=== PATIENT | female | born 1965 | race Caucasian/White ===

== ENCOUNTER 2025-08-27 09:59 | Outpatient (CLI) | payer OTHER, SELFPAY ==
--- NOTE | 2025-08-27 10:12 | USCV_ITS ---
Dorothy Mccarthy Age: 60 Gender: F : 1965 Exam Date: 08/27/2025 10:22 Ordering Phys: Alma Ye Technologist: KONRAD [place] [facility] [place]: [place] Risk Factors: Previous Vascular Surgery: Right Brachial BP: / Left Brachial BP: / Right Left Velocity (cm/s) Spectral Plaque Velocity (cm/s) Spectral Plaque Syst/Diast Broadening Syst/Diast Broadening 65.90/ 6.30 Prox CCA 117.30/ 32.00 120.10/33.00 Mid CCA 80.70 / 13.00 121.40/23.70 Distal CCA 77.40 / 21.90 75.40/ 21.80 Prox ICA 71.30 / 29.20 79.90/ 27.30 Mid ICA 91.50 / 40.40 89.60/ 29.20 Distal ICA 102.80/ 37.70 85.60 ECA 67.50 0.70 ICA/CCA 1.30 Antegrade Vertebral Antegrade 54.70/ 10.80 cm/s 51.60/ 14.20 cm/s Tri Subclavian Tri 100.0 91.10 0 CONCLUSIONS Right ICA stenosis <50%. Mild atheromatous plaque right carotid bulb/ICA. Left ICA stenosis <50%. Mild atheromatous plaque left carotid bulb/ICA. Normal antegrade Doppler flow noted in the right vertebral artery. Normal antegrade Doppler flow noted in the left vertebral artery. Louie Vieyra MD (Electronically Signed) Final Date: 27 August 2025 13:45 S
== END 2025-08-27 10:00 | disposition home or self-care (01) ==
LOC: RAD 10:03
PROVIDERS: PCP Family Medicine; Visit Provider Nurse Practitioner Family
DX: I73.9 Peripheral vascular disease, unspecified (principal); I65.23 Occlusion and stenosis of bilateral carotid arteries
CPT/HCPCS: 93880

== ENCOUNTER 2025-10-11 10:27 | Outpatient (CLI) | payer OTHER, SELFPAY ==
--- NOTE | 2025-10-11 10:39 | CT_ITS ---
WS: [id number] LDCT LUNG CANCER SCREENING TECHNIQUE: Noncontrast CT of the chest with coronal and sagittal reformatted images. CLINICAL INFORMATION: NICOTINE DEPENDENCE,CIGARETTES COMPARISON: None. DLP: 46.81 mGy.cm DIvol: Mean CTDIvol: 0.60 (mGy) All CT scans at [facility] use at least one of these dose optimization techniques: automated exposure control; mA and/or kV adjustment per patient size (includes targeted exams where dose is matched to clinical indication); or iterative reconstruction. FINDINGS: Advanced chronic emphysematous changes. Bulla formation LEFT upper lobe. No suspicious pulmonary parenchymal opacities Aortic calcification. Coronary calcification. Tiny esophageal hiatal hernia. No mediastinal or hilar lymphadenopathy. No axillary lymphadenopathy. Mild thoracic curve. Mild thoracic kyphosis. CT/CT lung screening [id number] IMPRESSION: LUNG-RADS: 1-Negative FOLLOW UP: 12 Month: Continue annual screening with LDCT
== END 2025-10-11 10:28 | disposition home or self-care (01) ==
LOC: RAD 10:27
PROVIDERS: PCP Family Medicine; Visit Provider Family Medicine
DX: Z12.2 Encounter for screening for malignant neoplasm of respiratory organs (principal); Z87.891 Personal history of nicotine dependence; I25.10 Atherosclerotic heart disease of native coronary artery without angina pectoris; I35.8 Other nonrheumatic aortic valve disorders; M40.204 Unspecified kyphosis, thoracic region; M43.8X4 Other specified deforming dorsopathies, thoracic region
CPT/HCPCS: 71271